=== PATIENT | female | born 2000 | race Caucasian/White ===

== ENCOUNTER 2023-04-20 21:00 | Emergency (ER) | payer BC, SELFPAY ==
[2023-04-20 21:03] VITALS: BP 131/70; PULSE 108; RESP 18; TEMP 36.3; O2SAT 100
--- NOTE | 2023-04-21 01:11 | ED.EYEPROB ---
HPI - Eye Problem General Chief complaint: Eye Problems Stated complaint: cat scratched B eyes Time Seen by Provider: 04/21/23 00:56 Source: patient Mode of arrival: ambulatory Limitations: no limitations History of Present Illness HPI Narrative: Patient is a 22-year-old female who presents to the ED with report of right eye discomfort. Patient reports her cat became startled around 8:30 PM tonight and tripped forward, struck to patient on the top of her scalp lesion on her right eye. She states she had very temporary changes in her vision after the initial scratch, but states her vision feels normal now. Denies significant pain, complains of redness, some watery discharge. Patient's cat is up-to-date on its vaccines. Tetanus up-to-date. Review of Systems Review of Systems: CONSTITUTIONAL: Denies fever, chills, or sweats. EYES: See HPI. NEUROLOGIC: Denies headache, numbness, or weakness. All systems reviewed & are unremarkable except as noted in HPI and below Exam Narrative: GENERAL: Well appearing, well-nourished, non-toxic, in no acute distress. HEAD: Normocephalic, atraumatic. 3 cm abrasion to top of scalp, no active bleeding. EYES: PERRL/EOMI, no significant pain with extra ocular movements. R eye conjunctiva slightly injected. No significant drainage. Small abrasion with mild erythemic ecchymosis to R upper eyelid. RESPIRATORY: Airway patent, respirations nonlabored. CARDIOVASCULAR: Regular rate and rhythm without murmurs, rubs, or gallops. Radial pulses 2+ and equal bilaterally. MUSCULOSKELETAL: Moves all extremities. No gross deformities. SKIN: Warm, dry, normal color. No rashes. NEURO: A&O X3. Speech clear. Cranial nerves II-XII grossly intact. Steady gait. No ataxic movements. PSYCHIATRIC: Appropriate mood and affect. Normal interaction. Course Vital Signs Vital signs: Vital Signs Temperature 97.3 F L 04/20/23 21:03 Pulse Rate 108 H 04/20/23 21:03 Respiratory Rate 18 04/20/23 21:03 Blood Pressure 131/70 04/20/23 21:03 Pulse Oximetry 100 04/20/23 21:03 Oxygen Delivery Room Air 04/20/23 21:03 Temperature 97.3 F L 04/20/23 21:03 Pulse Rate 108 H 04/20/23 21:03 Respiratory Rate 18 04/20/23 21:03 Blood Pressure 131/70 04/20/23 21:03 Pulse Oximetry 100 04/20/23 21:03 Oxygen Delivery Room Air 04/20/23 21:03 MDM - Eye Problem MDM Narrative Medical decision making narrative: Patient presented to ED with cat scratch to right eye. Denying any visual changes at this time. Visual acuity actually showing poorer vision in left eye, the unaffected eye. Fluorescein staining with Lowery lamp examination revealed pinpoint triangular area of uptake to conjunctiva, at location of 9 o'clock position outside of cornea. Patient does not wear contacts lenses. She does wear glasses. Will prescribe erythromycin ointment for right eye conjunctival abrasion. Advised close follow-up with distiller, given return precautions. Patient agrees with plan. Discharged in stable condition. Medical Records Attestation: I reviewed the patient's medical records. Discharge Plan Discharge Clinical Impression: Cat scratch of multiple sites Abrasion of right conjunctiva Qualifiers: Encounter type: initial encounter Qualified Code(s): S05.01XA - Injury of conjunctiva and corneal abrasion without foreign body, right eye, initial encounter Patient Disposition: Home, Self-Care Condition: Stable Instructions: Antibiotic Form, Corneal Abrasion (ED) Additional Instructions: Utilize antibiotic eye ointment as prescribed. Follow-up with your distiller for further evaluation. Return to the ED if you experience worsening or severe pain, further vision changes, swelling of the eye, increased drainage from eye, or any other symptoms of concern. Keep scratch wounds clean and dry. Monitor for signs of infection, such as increased pain, redness, drainage, fevers. Follow-up/Referrals
[2023-04-21] MEDS: FLUORESCEIN SOD 1 MG/STRIP EACH EYE (01:21)
--- NOTE | 2023-04-21 01:33 | PC.NURSE ---
Visual Acuity: Right-20/30 Left-20/50 Both-20/30
[2023-04-21] MEDS: ERYTHROMYCIN OPHTH OINTMENT 1 GM TUBE 1 APPLIC RIGHT EYE (02:04)
[2023-04-21 02:13] VITALS: BP 111/74; PULSE 88; RESP 14; O2SAT 99
== END 2023-04-21 02:15 | disposition home or self-care (01) ==
PROVIDERS: Emergency Provider Physician Assistant
DX: S05.01XA Injury of conjunctiva and corneal abrasion without foreign body, right eye, initial encounter (principal); W55.03XA Scratched by cat, initial encounter
CPT/HCPCS: 99283; A9270